=== PATIENT | male | born 2000 | race Hispanic/Latino ===

== ENCOUNTER 2018-08-29 12:17 | Emergency (ER) | payer OTHER ==
[~2018-08-29] VITALS: Ht 180.3 cm; Wt 96.8 kg
[2018-08-29] MEDS ORDERED: ZOLO100T PO (12:22)
[2018-08-29] MEDS ORDERED: NS 1,000 ML IV ONE (13:00)
[2018-08-29 14:01] LABS: BLOOD UREA NITROGEN 12 MG/DL (7-18); CARBON DIOXIDE LEVEL 26 MEQ/L (21-32); CHLORIDE LEVEL 107 MEQ/L (98-107); CPK CREATINE PHOSPHOKINASE 226 U/L (39-308); CREATININE FOR GFR 0.88 MG/DL (0.70-1.30); GLUCOSE, FASTING 76 MG/DL (70-100); SODIUM LEVEL 140 MEQ/L (136-145)
[2018-08-29 14:11] LABS: AMPHETAMINES LEVEL URINE NEGATIVE (NEGATIVE); BARBITURATES URINE NEGATIVE (NEGATIVE); BENZODIAZEPINES URINE NEGATIVE (NEGATIVE); CANNABINOIDS URINE NEGATIVE (NEGATIVE); COCAINE METABOLITE URINE NEGATIVE (NEGATIVE); METHADONE URINE NEGATIVE (NEGATIVE); OPIATES URINE NEGATIVE (NEGATIVE); PHENCYCLIDINE URINE NEGATIVE (NEGATIVE)
[2018-08-29 14:45] VITALS: BP 130/68
[2018-08-29] MEDS ORDERED: KEPP10002 PO (17:02)
--- NOTE | 2018-08-29 19:36 | ECGEPIP ---
[facility] - ED Test Date: 2018-08-29 Pat Name: JAZLYN ELLINGTON Department: Room: - Gender: Male Supervisor Lending Activities: JEusebia : 2000 Requested By: Minoo Machado Order Number: [id number] Reading MD: Minoo Machado Measurements Intervals [place] Rate: 84 P: 55 [place]: 159 QRS: 45 QRSD: 97 T: 37 QT: 347 QTc: 412 Interpretive Statements SINUS RHYTHM EARLY REPOLARIZATION, CLINICAL CORRELATION Electronically Signed on 08-29-2018 19:36:11 EDT by Minoo Machado
== END 2018-08-29 15:05 | disposition home or self-care (01) ==
LOC: M ED 12:17
DX: R25.3 Fasciculation (principal); R56.9 Unspecified convulsions; Z79.899 Other long term (current) drug therapy
CPT/HCPCS: 36415; 80048; 80307; 82550; 84146; 93005; 96360; 96361; 96365; 96366; 99284; J1953

== ENCOUNTER 2018-08-29 15:15 | Emergency (ER) | payer OTHER ==
[~2018-08-29 15:15] MED LIST: ZOLO100T PO
[2018-08-29] MEDS ORDERED: levETIRAcetam INJection 1,000 MG in D5W 100 ML IV ONE (16:00)
[2018-08-29] MEDS ORDERED: ACETAMINOPHEN 500 MG TAB PO ONE (16:15)
[2018-08-29] MEDS ORDERED: KEPP10002 PO (17:02)
[2018-08-29 21:16] VITALS: BP 107/55
== END 2018-08-29 21:18 | disposition home or self-care (01) ==
LOC: M ED 15:15
DX: R56.9 Unspecified convulsions (principal); Z79.899 Other long term (current) drug therapy

== ENCOUNTER 2018-09-11 20:24 | Emergency (ER) | payer OTHER ==
[~2018-09-11] VITALS: Ht 180.3 cm; Wt 100.0 kg
[~2018-09-11 20:24] MED LIST changes: +KEPP10002 PO
[2018-09-11] MEDS ORDERED: NS 1,000 ML IV ONE (21:00)
[2018-09-11 21:50] LABS: BLOOD UREA NITROGEN 18 MG/DL (7-18); CALCIUM LEVEL 7.7 MG/DL (8.5-10.1); CARBON DIOXIDE LEVEL 27 MEQ/L (21-32); CHLORIDE LEVEL 109 MEQ/L (98-107); CPK CREATINE PHOSPHOKINASE 275 U/L (39-308); CREATININE FOR GFR 0.86 MG/DL (0.70-1.30); ETHYL ALCOHOL (ETHANOL) < 0.003 % (0.000-0.010); GLUCOSE, FASTING 124 MG/DL (70-100); POTASSIUM SERUM 4.2 MEQ/L (3.5-5.1); SODIUM LEVEL 143 MEQ/L (136-145)
[2018-09-11 21:59] LABS: AMPHETAMINES LEVEL URINE NEGATIVE (NEGATIVE); BARBITURATES URINE NEGATIVE (NEGATIVE); BENZODIAZEPINES URINE NEGATIVE (NEGATIVE); CANNABINOIDS URINE NEGATIVE (NEGATIVE); COCAINE METABOLITE URINE NEGATIVE (NEGATIVE); METHADONE URINE NEGATIVE (NEGATIVE); OPIATES URINE NEGATIVE (NEGATIVE); PHENCYCLIDINE URINE NEGATIVE (NEGATIVE)
[2018-09-11 23:54] VITALS: BP 118/56
== END 2018-09-12 00:18 | disposition left against medical advice (07) ==
LOC: M ED 20:24
DX: G40.909 Epilepsy, unspecified, not intractable, without status epilepticus (principal); Z79.899 Other long term (current) drug therapy; F17.210 Nicotine dependence, cigarettes, uncomplicated
CPT/HCPCS: 36415; 80048; 80307; 82550; 99284; G0480